=== PATIENT | female | born 1950 | race Caucasian/White ===

== ENCOUNTER 2016-09-08 07:30 | Outpatient (CLI) | payer OTHER, MEDICARE | END 2016-09-08 07:31 | disposition home or self-care (01) | DX: D68.61 Antiphospholipid syndrome (principal) ==

== ENCOUNTER 2016-10-06 07:00 | Outpatient (CLI) | payer OTHER, MEDICARE | END 2016-10-06 07:01 | disposition home or self-care (01) | DX: D68.61 Antiphospholipid syndrome (principal) ==

== ENCOUNTER 2016-11-24 07:04 | Outpatient (CLI) | payer OTHER, MEDICARE | END 2016-11-24 07:05 | disposition home or self-care (01) | DX: D68.61 Antiphospholipid syndrome (principal) ==

== ENCOUNTER 2016-12-30 07:00 | Outpatient (CLI) | payer OTHER, MEDICARE | END 2016-12-30 07:01 | disposition home or self-care (01) | LOC: LAB.F 07:00 | PROVIDERS: ATTEND Internal Medicine Hematology & Oncology | DX: D68.61 Antiphospholipid syndrome (principal) | CPT/HCPCS: 85610 ==

== ENCOUNTER 2017-03-09 07:12 | Outpatient (CLI) | payer OTHER, MEDICARE | END 2017-03-09 07:13 | disposition home or self-care (01) | LOC: LAB.F 07:12 | PROVIDERS: ATTEND Internal Medicine Hematology & Oncology | DX: D68.61 Antiphospholipid syndrome (principal) | CPT/HCPCS: 85610 ==

== ENCOUNTER 2017-04-21 07:03 | Outpatient (CLI) | payer OTHER, MEDICARE | END 2017-04-21 07:04 | disposition home or self-care (01) | LOC: LAB.F 07:03 | PROVIDERS: ATTEND Internal Medicine Hematology & Oncology | DX: D68.61 Antiphospholipid syndrome (principal) | CPT/HCPCS: 85610 ==

== ENCOUNTER 2017-05-18 07:05 | Outpatient (CLI) | payer OTHER, MEDICARE | END 2017-05-18 07:06 | disposition home or self-care (01) | LOC: LAB.F 07:05 | PROVIDERS: ATTEND Internal Medicine Hematology & Oncology | DX: D68.61 Antiphospholipid syndrome (principal) | CPT/HCPCS: 85610 ==

== ENCOUNTER 2017-06-16 07:04 | Outpatient (CLI) | payer OTHER, MEDICARE | END 2017-06-16 07:05 | disposition home or self-care (01) | LOC: LAB.F 07:04 | PROVIDERS: ATTEND Internal Medicine Hematology & Oncology | DX: D68.61 Antiphospholipid syndrome (principal) | CPT/HCPCS: 85610 ==

== ENCOUNTER 2017-08-10 07:08 | Outpatient (CLI) | payer OTHER, MEDICARE | END 2017-08-10 07:09 | disposition home or self-care (01) | LOC: LAB.F 07:08 | PROVIDERS: ATTEND Internal Medicine Hematology & Oncology | DX: D68.61 Antiphospholipid syndrome (principal) | CPT/HCPCS: 85610 ==

== ENCOUNTER 2017-08-31 07:06 | Outpatient (CLI) | payer OTHER, MEDICARE | END 2017-08-31 07:07 | disposition home or self-care (01) | LOC: LAB.F 07:06 | PROVIDERS: ATTEND Internal Medicine Hematology & Oncology | DX: D68.61 Antiphospholipid syndrome (principal) | CPT/HCPCS: 85610 ==

== ENCOUNTER 2017-09-21 07:01 | Outpatient (CLI) | payer OTHER, MEDICARE | END 2017-09-21 07:02 | disposition home or self-care (01) | LOC: LAB.F 07:01 | PROVIDERS: ATTEND Internal Medicine Hematology & Oncology | DX: D68.61 Antiphospholipid syndrome (principal) | CPT/HCPCS: 85610 ==

== ENCOUNTER 2017-10-12 08:00 | Outpatient (CLI) | payer OTHER, MEDICARE | END 2017-10-12 08:01 | LOC: LAB.F 08:00 | PROVIDERS: ATTEND Internal Medicine Hematology & Oncology | DX: D68.61 Antiphospholipid syndrome (principal) | CPT/HCPCS: 85610 ==

== ENCOUNTER 2017-11-16 08:00 | Outpatient (CLI) | payer OTHER, MEDICARE | END 2017-11-16 08:01 | LOC: LAB.F 08:00 | PROVIDERS: ATTEND Internal Medicine | DX: D68.61 Antiphospholipid syndrome (principal) | CPT/HCPCS: 85610 ==

== ENCOUNTER 2017-12-07 07:01 | Outpatient (CLI) | payer OTHER, MEDICARE ==
[2017-12-07 11:12] LABS: PT - PROTHROMBIN TIME 21.9 secs (9.9-12.6)
== END 2017-12-07 07:02 ==
LOC: LAB.F 07:01
PROVIDERS: ATTEND Internal Medicine
DX: D68.61 Antiphospholipid syndrome (principal)
CPT/HCPCS: 85610

== ENCOUNTER 2017-12-25 07:11 | Outpatient (CLI) | payer OTHER, MEDICARE | END 2017-12-25 07:12 | disposition home or self-care (01) | LOC: LAB.F 07:11 | PROVIDERS: ATTEND Internal Medicine | DX: D68.61 Antiphospholipid syndrome (principal) ==

== ENCOUNTER 2017-12-25 08:00 | Outpatient (CLI) | payer OTHER, MEDICARE ==
[2017-12-25 12:24] LABS: INR 1.7 (0.8-1.2); PT - PROTHROMBIN TIME 19.2 secs (9.9-12.6)
== END 2017-12-25 08:01 | disposition home or self-care (01) ==
LOC: LAB.F 08:00
PROVIDERS: ATTEND Internal Medicine
DX: D68.61 Antiphospholipid syndrome (principal); Z51.81 Encounter for therapeutic drug level monitoring; Z79.01 Long term (current) use of anticoagulants
CPT/HCPCS: 36415; 85610

== ENCOUNTER 2017-12-29 07:18 | Outpatient (CLI) | payer OTHER, MEDICARE ==
[2017-12-29 10:35] LABS: INR 2.3 (0.8-1.2); PT - PROTHROMBIN TIME 25.1 secs (9.9-12.6)
== END 2017-12-29 07:19 | disposition home or self-care (01) ==
LOC: LAB.F 07:18
PROVIDERS: ATTEND Internal Medicine
DX: D68.61 Antiphospholipid syndrome (principal); Z79.01 Long term (current) use of anticoagulants
CPT/HCPCS: 36415; 85610

== ENCOUNTER 2018-01-04 07:34 | Outpatient (CLI) | payer OTHER, MEDICARE | END 2018-01-04 07:35 | disposition home or self-care (01) | LOC: LAB.F 07:34 | PROVIDERS: ATTEND Internal Medicine | DX: D68.61 Antiphospholipid syndrome (principal) | CPT/HCPCS: 85610 ==

== ENCOUNTER 2018-02-23 07:05 | Outpatient (CLI) | payer OTHER, MEDICARE | END 2018-02-23 07:06 | disposition home or self-care (01) | LOC: LAB.F 07:05 | PROVIDERS: ATTEND Internal Medicine | DX: D68.61 Antiphospholipid syndrome (principal) | CPT/HCPCS: 85610 ==

== ENCOUNTER 2018-03-23 08:27 | Outpatient (CLI) | payer OTHER, MEDICARE | END 2018-03-23 08:28 | disposition home or self-care (01) | LOC: LAB.F 08:27 | PROVIDERS: ATTEND Internal Medicine | DX: D68.61 Antiphospholipid syndrome (principal) | CPT/HCPCS: 85610 ==

== ENCOUNTER 2018-04-20 07:57 | Outpatient (CLI) | payer OTHER, MEDICARE | END 2018-04-20 07:58 | disposition home or self-care (01) | LOC: LAB.F 07:57 | PROVIDERS: ATTEND Internal Medicine | DX: D68.61 Antiphospholipid syndrome (principal) | CPT/HCPCS: 85610 ==

== ENCOUNTER 2018-05-17 08:19 | Outpatient (CLI) | payer MEDICARE, OTHER | END 2018-05-17 08:20 | disposition home or self-care (01) | LOC: LAB.F 08:19 | PROVIDERS: ATTEND Internal Medicine | DX: D68.61 Antiphospholipid syndrome (principal) | CPT/HCPCS: 85610 ==

== ENCOUNTER 2018-06-15 08:00 | Outpatient (CLI) | payer MEDICARE, OTHER ==
[2018-06-15 10:56] LABS: INR 1.6 (0.8-1.2); PT - PROTHROMBIN TIME 17.4 secs (9.9-12.6)
== END 2018-06-15 08:01 | disposition home or self-care (01) ==
LOC: LAB.F 08:00
PROVIDERS: ATTEND Internal Medicine
DX: D68.61 Antiphospholipid syndrome (principal)
CPT/HCPCS: 36415; 85610

== ENCOUNTER 2018-06-29 07:54 | Outpatient (CLI) | payer MEDICARE, OTHER | END 2018-06-29 07:55 | disposition home or self-care (01) | LOC: LAB.F 07:54 | PROVIDERS: ATTEND Internal Medicine | DX: D68.61 Antiphospholipid syndrome (principal) | CPT/HCPCS: 85610 ==

== ENCOUNTER 2018-07-13 07:38 | Outpatient (CLI) | payer MEDICARE, OTHER | END 2018-07-13 07:39 | disposition home or self-care (01) | LOC: LAB.F 07:38 | PROVIDERS: ATTEND Internal Medicine | DX: D68.61 Antiphospholipid syndrome (principal) | CPT/HCPCS: 85610 ==

== ENCOUNTER 2018-08-10 07:50 | Outpatient (CLI) | payer MEDICARE, OTHER | END 2018-08-10 07:51 | disposition home or self-care (01) | LOC: LAB.F 07:50 | PROVIDERS: ATTEND Internal Medicine | DX: D68.61 Antiphospholipid syndrome (principal) | CPT/HCPCS: 85610 ==

== ENCOUNTER 2018-09-07 10:22 | Outpatient (CLI) | payer MEDICARE, OTHER | END 2018-09-07 10:23 | disposition home or self-care (01) | LOC: LAB.F 10:22 | PROVIDERS: ATTEND Internal Medicine | DX: D68.61 Antiphospholipid syndrome (principal) | CPT/HCPCS: 85610 ==

== ENCOUNTER 2018-09-28 08:00 | Outpatient (CLI) | payer MEDICARE, OTHER | END 2018-09-28 08:01 | disposition home or self-care (01) | LOC: LAB.F 08:00 | PROVIDERS: ATTEND Internal Medicine | DX: D68.61 Antiphospholipid syndrome (principal) | CPT/HCPCS: 85610 ==

== ENCOUNTER 2018-10-26 07:36 | Outpatient (CLI) | payer MEDICARE, OTHER | END 2018-10-26 07:37 | disposition home or self-care (01) | LOC: LAB.F 07:36 | PROVIDERS: ATTEND Internal Medicine | DX: D68.61 Antiphospholipid syndrome (principal) | CPT/HCPCS: 85610 ==

== ENCOUNTER 2018-11-15 15:28 | Emergency (ER) | payer MEDICARE, OTHER ==
[2018-11-15 15:42] VITALS: BP 150/62
--- NOTE | 2018-11-15 16:01 | ED Physician Documentation ---
PD HPI UPPER EXT INJURY - Stated complaint Stated Complaint: R FINGER LAC/ON BLOOD THINNERS - Chief complaint Chief Complaint: Laceration - History obtained from History obtained from: Patient - History of Present Illness Location: Right (68-year-old woman on warfarin cut her right fourth finger on broken glass at home just prior to arrival. 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 Cardiovascular: Coronary stent - Present Medications Home Medications: Ambulatory Orders Medication Instructions Recorded Confirmed Aspirin 325 DAILY 09/04/13 09/04/13 Atenolol 25 DAILY 09/04/13 09/04/13 Cholecalciferol (Vitamin D3) 2,000 09/04/13 09/04/13 [Vitamin D] Fexofenadine HCl [Deb] 180 DAILY 09/04/13 09/04/13 Levothyroxine Sodium [Levoxyl] 75 DAILY 09/04/13 09/04/13 Nifedipine [Nifedical Xl] 30 BID 09/04/13 09/04/13 Subcutaneous Insulin Pump [Insulin 09/04/13 09/04/13 Pump] Warfarin [Coumadin] 1 mg PO 1400 11/15/18 11/15/18 - Allergies Allergies/Adverse Reactions: Allergies Allergy/AdvReac Type Severity Reaction Status Date / Time cefuroxime axetil * Allergy Intermediate Itching Verified 11/15/18 15:43 [From Ceftin] ciprofloxacin [From Cipro] Allergy Intermediate Rash Verified 09/04/13 02:14 ciprofloxacin HCl * Allergy Intermediate Rash Verified 09/04/13 02:14 [From Cipro] codeine Allergy Intermediate Rash Verified 11/15/18 15:43 hydrocodone Allergy Intermediate Itching Verified 11/15/18 15:43 salsalate [Salsalate] Allergy Intermediate Rash Verified 11/15/18 15:43 Penicillins Allergy Mild Rash Verified 11/15/18 15:43 sulindac [Sulindac] Allergy Mild Rash Verified 11/15/18 15:43 acetaphetamine AdvReac Unknown Uncoded 09/04/13 02:25 - Social History Does the pt smoke?: No Smoking Status: Never smoker Does the pt drink ETOH?: Yes Does the pt have substance abuse?: No - Immunizations Immunizations are current?: Yes PD ED PE NORMAL - Vitals Vital signs reviewed: Yes - General General: Alert and oriented X 3, No acute distress - Extremities Extremities: Other (On the Tip of the right fourth finger ulnar side there is a little skin amputation measuring only about 2 mm in diameter with active bleeding.) - Neuro Neuro: Alert and oriented X 3, Normal speech Results - Vitals Vitals: Vital Signs - 24 hr 11/15/18 15:41 Temperature 36.3 C L Heart Rate 64 Respiratory 18 Rate Blood Pressure 150/62 H O2 Saturation 100 Oxygen O2 Source Room air - Labs Labs: Laboratory Tests 11/15/18 16:05 Whole Blood INR 2.2 H Procedures - Laceration (location) Right fourth finger Length in cm: 0.2 Wound type: Superficial Wound Preparation: Irrigated copiously NS Skin layer closure: Dermabond Complexity: Simple Departure - Departure Disposition: 01 Home, Self Care Clinical Impression: Laceration Condition: Good Record reviewed to determine appropriate education?: Yes Instructions: ED Laceration Small Superf No Sutr Comments: You can wash briefly with soap and water. Otherwise keep it dry just covered with a regular Band-Aid. Come back for any signs of infection which would include: Redness, swelling, drainage, increased pain, or fevers. Your blood pressure was elevated today on check into the emergency department. This does not mean that you have hypertension, it is a common phenomenon to come to the emergency department and have elevated blood pressure. I recommend that you see your primary care physician within the week to have it rechecked when you are feeling better. Your INR today is 2.2 which is perfect.
== END 2018-11-15 16:16 | disposition home or self-care (01) ==
LOC: ED 15:28
DX: S61.214A Laceration without foreign body of right ring finger without damage to nail, initial encounter (principal); W25.XXXA Contact with sharp glass, initial encounter; Y93.G1 Activity, food preparation and clean up; Y92.009 Unspecified place in unspecified non-institutional (private) residence as the place of occurrence of the external cause; R03.0 Elevated blood-pressure reading, without diagnosis of hypertension; E10.9 Type 1 diabetes mellitus without complications; Z79.01 Long term (current) use of anticoagulants
CPT/HCPCS: 12001; 85610; 99282; 99283

== ENCOUNTER 2019-01-11 07:47 | Outpatient (CLI) | payer MEDICARE, OTHER | END 2019-01-11 07:48 | disposition home or self-care (01) | LOC: LAB.F 07:47 | PROVIDERS: ATTEND Internal Medicine | DX: D68.61 Antiphospholipid syndrome (principal) | CPT/HCPCS: 85610 ==

== ENCOUNTER 2019-02-15 08:33 | Outpatient (CLI) | payer MEDICARE, OTHER | END 2019-02-15 08:34 | disposition home or self-care (01) | LOC: LAB.S 08:33 | PROVIDERS: ATTEND Internal Medicine | DX: D68.61 Antiphospholipid syndrome (principal) | CPT/HCPCS: 85610 ==

== ENCOUNTER 2019-03-22 07:34 | Outpatient (CLI) | payer MEDICARE, OTHER | END 2019-03-22 07:35 | disposition home or self-care (01) | LOC: LAB.S 07:34 | PROVIDERS: ATTEND Internal Medicine | DX: D68.61 Antiphospholipid syndrome (principal) | CPT/HCPCS: 85610 ==

== ENCOUNTER 2019-05-03 08:10 | Outpatient (CLI) | payer MEDICARE, OTHER | END 2019-05-03 08:11 | disposition home or self-care (01) | LOC: LAB.S 08:10 | PROVIDERS: ATTEND Internal Medicine | DX: D68.61 Antiphospholipid syndrome (principal) | CPT/HCPCS: 85610 ==

== ENCOUNTER 2019-06-07 08:02 | Outpatient (CLI) | payer MEDICARE, OTHER | END 2019-06-07 08:03 | disposition home or self-care (01) | LOC: LAB.S 08:02 | PROVIDERS: ATTEND Internal Medicine | DX: D68.61 Antiphospholipid syndrome (principal) | CPT/HCPCS: 85610 ==

== ENCOUNTER 2019-07-05 07:35 | Outpatient (CLI) | payer MEDICARE, OTHER | END 2019-07-05 07:36 | disposition home or self-care (01) | LOC: LAB.S 07:35 | PROVIDERS: ATTEND Internal Medicine | DX: D68.61 Antiphospholipid syndrome (principal) | CPT/HCPCS: 85610 ==

== ENCOUNTER 2019-08-09 07:52 | Outpatient (CLI) | payer MEDICARE, OTHER | END 2019-08-09 07:53 | disposition home or self-care (01) | LOC: LAB.S 07:52 | PROVIDERS: ATTEND Internal Medicine | DX: D68.61 Antiphospholipid syndrome (principal) | CPT/HCPCS: 85610 ==

== ENCOUNTER 2019-09-20 07:10 | Outpatient (CLI) | payer MEDICARE, OTHER | END 2019-09-20 07:11 | disposition home or self-care (01) | LOC: LAB.S 07:10 | PROVIDERS: ATTEND Internal Medicine | DX: D68.61 Antiphospholipid syndrome (principal) | CPT/HCPCS: 85610 ==

== ENCOUNTER 2019-10-25 07:38 | Outpatient (CLI) | payer MEDICARE, OTHER | END 2019-10-25 07:39 | disposition home or self-care (01) | LOC: LAB.S 07:38 | PROVIDERS: ATTEND Internal Medicine | DX: D68.61 Antiphospholipid syndrome (principal) | CPT/HCPCS: 85610 ==

== ENCOUNTER 2020-04-10 07:31 | Outpatient (CLI) | payer MEDICARE, OTHER | END 2020-04-10 07:32 | disposition home or self-care (01) | LOC: LAB.S 07:31 | PROVIDERS: ATTEND Internal Medicine | DX: D68.61 Antiphospholipid syndrome (principal) | CPT/HCPCS: 85610 ==

== ENCOUNTER 2020-05-22 07:52 | Outpatient (CLI) | payer MEDICARE, OTHER | END 2020-05-22 07:53 | disposition home or self-care (01) | LOC: LAB.S 07:52 | PROVIDERS: ATTEND Internal Medicine | DX: D68.61 Antiphospholipid syndrome (principal) | CPT/HCPCS: 85610 ==

== ENCOUNTER 2020-07-03 07:32 | Outpatient (CLI) | payer MEDICARE, OTHER | END 2020-07-03 07:33 | disposition home or self-care (01) | LOC: LAB.S 07:32 | PROVIDERS: ATTEND Internal Medicine | DX: D68.61 Antiphospholipid syndrome (principal) | CPT/HCPCS: 85610 ==

== ENCOUNTER 2020-07-13 07:51 | Outpatient (CLI) | payer MEDICARE, OTHER | END 2020-07-13 07:52 | disposition home or self-care (01) | LOC: LAB.S 07:51 | PROVIDERS: ATTEND Internal Medicine | DX: D68.61 Antiphospholipid syndrome (principal) | CPT/HCPCS: 85610 ==

== ENCOUNTER 2020-07-20 07:29 | Outpatient (CLI) | payer MEDICARE, OTHER | END 2020-07-20 07:30 | disposition home or self-care (01) | LOC: LAB.S 07:29 | PROVIDERS: ATTEND Internal Medicine | DX: D68.61 Antiphospholipid syndrome (principal) | CPT/HCPCS: 85610 ==

== ENCOUNTER 2020-08-14 07:44 | Outpatient (CLI) | payer MEDICARE, OTHER | END 2020-08-14 07:45 | disposition home or self-care (01) | LOC: LAB.S 07:44 | PROVIDERS: ATTEND Internal Medicine | DX: D68.61 Antiphospholipid syndrome (principal) | CPT/HCPCS: 85610 ==

== ENCOUNTER 2020-08-28 09:37 | Outpatient (CLI) | payer MEDICARE, OTHER | END 2020-08-28 09:38 | disposition home or self-care (01) | LOC: LAB.S 09:37 | PROVIDERS: ATTEND Internal Medicine | DX: D68.61 Antiphospholipid syndrome (principal) | CPT/HCPCS: 85610 ==

== ENCOUNTER 2020-09-18 07:57 | Outpatient (CLI) | payer MEDICARE, OTHER | END 2020-09-18 07:58 | disposition home or self-care (01) | LOC: LAB.S 07:57 | PROVIDERS: ATTEND Internal Medicine | DX: D68.61 Antiphospholipid syndrome (principal) | CPT/HCPCS: 85610 ==

== ENCOUNTER 2020-10-16 08:18 | Outpatient (CLI) | payer MEDICARE, OTHER | END 2020-10-16 08:19 | disposition home or self-care (01) | LOC: LAB.S 08:18 | PROVIDERS: ATTEND Internal Medicine | DX: D68.61 Antiphospholipid syndrome (principal); Z51.81 Encounter for therapeutic drug level monitoring; Z79.01 Long term (current) use of anticoagulants | CPT/HCPCS: 85610 ==

== ENCOUNTER 2020-11-13 07:15 | Outpatient (CLI) | payer MEDICARE, OTHER | END 2020-11-13 07:16 | disposition home or self-care (01) | LOC: LAB.S 07:15 | PROVIDERS: ATTEND Internal Medicine | DX: D68.61 Antiphospholipid syndrome (principal); Z51.81 Encounter for therapeutic drug level monitoring; Z79.01 Long term (current) use of anticoagulants | CPT/HCPCS: 85610 ==

== ENCOUNTER 2020-12-04 07:45 | Outpatient (CLI) | payer MEDICARE, OTHER | END 2020-12-04 07:46 | disposition home or self-care (01) | LOC: LAB.S 07:45 | PROVIDERS: ATTEND Internal Medicine | DX: D68.61 Antiphospholipid syndrome (principal); Z51.81 Encounter for therapeutic drug level monitoring; Z79.01 Long term (current) use of anticoagulants | CPT/HCPCS: 36416; 85610 ==

== ENCOUNTER 2021-01-02 07:57 | Outpatient (CLI) | payer MEDICARE, OTHER | END 2021-01-02 07:58 | disposition home or self-care (01) | LOC: LAB.S 07:57 | PROVIDERS: ATTEND Internal Medicine | DX: D68.61 Antiphospholipid syndrome (principal); Z51.81 Encounter for therapeutic drug level monitoring; Z79.01 Long term (current) use of anticoagulants | CPT/HCPCS: 36416; 85610 ==

== ENCOUNTER 2021-01-30 08:17 | Outpatient (CLI) | payer MEDICARE, OTHER | END 2021-01-30 08:18 | disposition home or self-care (01) | LOC: LAB.S 08:17 | PROVIDERS: ATTEND Internal Medicine | DX: D68.61 Antiphospholipid syndrome (principal); Z51.81 Encounter for therapeutic drug level monitoring; Z79.01 Long term (current) use of anticoagulants | CPT/HCPCS: 36416; 85610 ==

== ENCOUNTER 2021-02-27 08:05 | Outpatient (CLI) | payer MEDICARE, OTHER | END 2021-02-27 08:06 | disposition home or self-care (01) | LOC: LAB.S 08:05 | PROVIDERS: ATTEND Internal Medicine | DX: D68.61 Antiphospholipid syndrome (principal); Z51.81 Encounter for therapeutic drug level monitoring; Z79.01 Long term (current) use of anticoagulants | CPT/HCPCS: 36416; 85610 ==

== ENCOUNTER 2021-03-20 07:54 | Outpatient (CLI) | payer MEDICARE, OTHER | END 2021-03-20 07:55 | disposition home or self-care (01) | LOC: LAB.S 07:54 | PROVIDERS: ATTEND Internal Medicine | DX: D68.61 Antiphospholipid syndrome (principal); Z51.81 Encounter for therapeutic drug level monitoring; Z79.01 Long term (current) use of anticoagulants | CPT/HCPCS: 36416; 85610 ==

== ENCOUNTER 2021-04-17 07:57 | Outpatient (CLI) | payer MEDICARE, OTHER | END 2021-04-17 07:58 | disposition home or self-care (01) | LOC: LAB.S 07:57 | PROVIDERS: ATTEND Internal Medicine | DX: D68.61 Antiphospholipid syndrome (principal); Z51.81 Encounter for therapeutic drug level monitoring; Z79.01 Long term (current) use of anticoagulants | CPT/HCPCS: 36416; 85610 ==

== ENCOUNTER 2021-05-15 08:12 | Outpatient (CLI) | payer MEDICARE, OTHER | END 2021-05-15 08:13 | disposition home or self-care (01) | LOC: LAB.S 08:12 | PROVIDERS: ATTEND Internal Medicine | DX: D68.61 Antiphospholipid syndrome (principal); Z51.81 Encounter for therapeutic drug level monitoring; Z79.01 Long term (current) use of anticoagulants | CPT/HCPCS: 36416; 85610 ==

== ENCOUNTER 2021-06-12 07:53 | Outpatient (CLI) | payer MEDICARE, OTHER | END 2021-06-12 07:54 | disposition home or self-care (01) | LOC: LAB.S 07:53 | PROVIDERS: ATTEND Internal Medicine | DX: D68.61 Antiphospholipid syndrome (principal); Z51.81 Encounter for therapeutic drug level monitoring; Z79.01 Long term (current) use of anticoagulants | CPT/HCPCS: 36416; 85610 ==

== ENCOUNTER 2021-07-22 07:57 | Outpatient (CLI) | payer MEDICARE, OTHER | END 2021-07-22 07:58 | disposition home or self-care (01) | LOC: LAB.S 07:57 | PROVIDERS: ATTEND Internal Medicine | DX: D68.61 Antiphospholipid syndrome (principal); Z51.81 Encounter for therapeutic drug level monitoring; Z79.01 Long term (current) use of anticoagulants | CPT/HCPCS: 36416; 85610 ==

== ENCOUNTER 2021-08-21 07:48 | Outpatient (CLI) | payer MEDICARE, OTHER | END 2021-08-21 07:49 | disposition home or self-care (01) | LOC: LAB.S 07:48 | PROVIDERS: ATTEND Internal Medicine | DX: D68.61 Antiphospholipid syndrome (principal); Z51.81 Encounter for therapeutic drug level monitoring; Z79.01 Long term (current) use of anticoagulants | CPT/HCPCS: 36416; 85610 ==

== ENCOUNTER 2021-09-18 07:44 | Outpatient (CLI) | payer MEDICARE, OTHER | END 2021-09-18 07:45 | disposition home or self-care (01) | LOC: LAB.S 07:44 | PROVIDERS: ATTEND Internal Medicine | DX: D68.61 Antiphospholipid syndrome (principal); Z51.81 Encounter for therapeutic drug level monitoring; Z79.01 Long term (current) use of anticoagulants | CPT/HCPCS: 36416; 85610 ==

== ENCOUNTER 2021-10-16 07:53 | Outpatient (CLI) | payer MEDICARE, OTHER | END 2021-10-16 07:54 | disposition home or self-care (01) | LOC: LAB.S 07:53 | PROVIDERS: ATTEND Internal Medicine | DX: D68.61 Antiphospholipid syndrome (principal); Z51.81 Encounter for therapeutic drug level monitoring; Z79.01 Long term (current) use of anticoagulants | CPT/HCPCS: 36416; 85610 ==

== ENCOUNTER 2021-10-28 07:50 | Outpatient (CLI) | payer MEDICARE, OTHER | END 2021-10-28 07:51 | disposition home or self-care (01) | LOC: LAB.S 07:50 | PROVIDERS: ATTEND Internal Medicine | DX: D68.61 Antiphospholipid syndrome (principal); Z51.81 Encounter for therapeutic drug level monitoring; Z79.01 Long term (current) use of anticoagulants | CPT/HCPCS: 36416; 85610 ==

== ENCOUNTER 2021-11-25 07:57 | Outpatient (CLI) | payer MEDICARE, OTHER | END 2021-11-25 07:58 | disposition home or self-care (01) | LOC: LAB.S 07:57 | PROVIDERS: ATTEND Internal Medicine | DX: D68.61 Antiphospholipid syndrome (principal); Z51.81 Encounter for therapeutic drug level monitoring; Z79.01 Long term (current) use of anticoagulants | CPT/HCPCS: 36416; 85610 ==

== ENCOUNTER 2021-12-23 08:02 | Outpatient (CLI) | payer MEDICARE, OTHER | END 2021-12-23 08:03 | disposition home or self-care (01) | LOC: LAB.S 08:02 | PROVIDERS: ATTEND Internal Medicine | DX: D68.61 Antiphospholipid syndrome (principal); Z51.81 Encounter for therapeutic drug level monitoring; Z79.01 Long term (current) use of anticoagulants | CPT/HCPCS: 36416; 85610 ==

== ENCOUNTER 2022-01-20 08:02 | Outpatient (CLI) | payer MEDICARE, OTHER | END 2022-01-20 08:03 | disposition home or self-care (01) | LOC: LAB.S 08:02 | PROVIDERS: ATTEND Internal Medicine | DX: D68.61 Antiphospholipid syndrome (principal); Z51.81 Encounter for therapeutic drug level monitoring; Z79.01 Long term (current) use of anticoagulants | CPT/HCPCS: 36416; 85610 ==

== ENCOUNTER 2022-02-04 07:36 | Outpatient (CLI) | payer MEDICARE, OTHER | END 2022-02-04 07:37 | disposition home or self-care (01) | LOC: LAB.S 07:36 | PROVIDERS: ATTEND Internal Medicine | DX: D68.61 Antiphospholipid syndrome (principal); Z51.81 Encounter for therapeutic drug level monitoring; Z79.01 Long term (current) use of anticoagulants | CPT/HCPCS: 36416; 85610 ==

== ENCOUNTER 2022-02-21 07:42 | Outpatient (CLI) | payer MEDICARE, OTHER | END 2022-02-21 07:43 | disposition home or self-care (01) | LOC: LAB.S 07:42 | PROVIDERS: ATTEND Internal Medicine | DX: D68.61 Antiphospholipid syndrome (principal); Z51.81 Encounter for therapeutic drug level monitoring; Z79.01 Long term (current) use of anticoagulants | CPT/HCPCS: 36416; 85610 ==

== ENCOUNTER 2022-02-24 07:44 | Outpatient (CLI) | payer MEDICARE, OTHER | END 2022-02-24 07:45 | disposition home or self-care (01) | LOC: LAB.S 07:44 | PROVIDERS: ATTEND Internal Medicine | DX: D68.61 Antiphospholipid syndrome (principal); Z51.81 Encounter for therapeutic drug level monitoring; Z79.01 Long term (current) use of anticoagulants | CPT/HCPCS: 36416; 85610 ==

== ENCOUNTER 2022-02-26 07:33 | Outpatient (CLI) | payer MEDICARE, OTHER | END 2022-02-26 07:34 | disposition home or self-care (01) | LOC: LAB.S 07:33 | PROVIDERS: ATTEND Internal Medicine | DX: D68.61 Antiphospholipid syndrome (principal); Z51.81 Encounter for therapeutic drug level monitoring; Z79.01 Long term (current) use of anticoagulants | CPT/HCPCS: 36416; 85610 ==

== ENCOUNTER 2022-03-03 07:24 | Outpatient (CLI) | payer MEDICARE, OTHER | END 2022-03-03 07:25 | disposition home or self-care (01) | LOC: LAB.S 07:24 | PROVIDERS: ATTEND Internal Medicine | DX: D68.61 Antiphospholipid syndrome (principal); Z51.81 Encounter for therapeutic drug level monitoring; Z79.01 Long term (current) use of anticoagulants | CPT/HCPCS: 36416; 85610 ==

== ENCOUNTER 2022-03-31 07:25 | Outpatient (CLI) | payer MEDICARE, OTHER | END 2022-03-31 07:26 | disposition home or self-care (01) | LOC: LAB.S 07:25 | PROVIDERS: ATTEND Internal Medicine | DX: D68.61 Antiphospholipid syndrome (principal); Z51.81 Encounter for therapeutic drug level monitoring; Z79.01 Long term (current) use of anticoagulants | CPT/HCPCS: 36416; 85610 ==

== ENCOUNTER 2022-04-14 07:17 | Outpatient (CLI) | payer MEDICARE, OTHER | END 2022-04-14 07:18 | disposition home or self-care (01) | LOC: LAB.S 07:17 | PROVIDERS: ATTEND Internal Medicine | DX: D68.61 Antiphospholipid syndrome (principal); Z51.81 Encounter for therapeutic drug level monitoring; Z79.01 Long term (current) use of anticoagulants | CPT/HCPCS: 36416; 85610 ==

== ENCOUNTER 2022-05-05 07:27 | Outpatient (CLI) | payer MEDICARE, OTHER | END 2022-05-05 07:28 | disposition home or self-care (01) | LOC: LAB.S 07:27 | PROVIDERS: ATTEND Internal Medicine | DX: D68.61 Antiphospholipid syndrome (principal); Z51.81 Encounter for therapeutic drug level monitoring; Z79.01 Long term (current) use of anticoagulants | CPT/HCPCS: 36416; 85610 ==

== ENCOUNTER 2022-08-11 10:50 | Outpatient (CLI) | payer MEDICARE, OTHER | END 2022-08-11 10:51 | disposition home or self-care (01) | LOC: LAB 10:50 | PROVIDERS: ATTEND Internal Medicine | DX: D68.61 Antiphospholipid syndrome (principal); Z51.81 Encounter for therapeutic drug level monitoring; Z79.01 Long term (current) use of anticoagulants | CPT/HCPCS: 36416; 85610 ==

== ENCOUNTER 2022-09-03 08:12 | Outpatient (CLI) | payer MEDICARE, OTHER ==
[2022-09-03 20:36] LABS: ESTIMATED AVERAGE GLUCOSE 166 mg/dL (70-100); HEMOGLOBIN A1c% 7.4 % (4.27-6.07)
== END 2022-09-03 08:13 | disposition home or self-care (01) ==
LOC: LAB.S 08:12
PROVIDERS: ATTEND Nurse Practitioner Family
DX: E10.8 Type 1 diabetes mellitus with unspecified complications (principal); Z96.41 Presence of insulin pump (external) (internal)
CPT/HCPCS: 36415; 83036

== ENCOUNTER 2022-09-08 07:38 | Outpatient (CLI) | payer MEDICARE, OTHER | END 2022-09-08 07:39 | disposition home or self-care (01) | LOC: LAB.S 07:38 | PROVIDERS: ATTEND Internal Medicine | DX: D68.61 Antiphospholipid syndrome (principal); Z51.81 Encounter for therapeutic drug level monitoring; Z79.01 Long term (current) use of anticoagulants | CPT/HCPCS: 36416; 85610 ==

== ENCOUNTER 2022-09-30 07:13 | Outpatient (CLI) | payer MEDICARE, OTHER | END 2022-09-30 07:14 | disposition home or self-care (01) | LOC: LAB.S 07:13 | PROVIDERS: ATTEND Internal Medicine | DX: D68.61 Antiphospholipid syndrome (principal); Z51.81 Encounter for therapeutic drug level monitoring; Z79.01 Long term (current) use of anticoagulants | CPT/HCPCS: 36416; 85610 ==

== ENCOUNTER 2022-10-08 08:00 | Outpatient (CLI) | payer MEDICARE, OTHER | END 2022-10-08 08:01 | disposition home or self-care (01) | LOC: LAB.S 08:00 | PROVIDERS: ATTEND Internal Medicine | DX: D68.61 Antiphospholipid syndrome (principal); Z51.81 Encounter for therapeutic drug level monitoring; Z79.01 Long term (current) use of anticoagulants | CPT/HCPCS: 36416; 85610 ==

== ENCOUNTER 2022-11-10 07:46 | Outpatient (CLI) | payer MEDICARE, OTHER | END 2022-11-10 07:47 | disposition home or self-care (01) | LOC: LAB.S 07:46 | PROVIDERS: ATTEND Internal Medicine | DX: D68.61 Antiphospholipid syndrome (principal); Z51.81 Encounter for therapeutic drug level monitoring; Z79.01 Long term (current) use of anticoagulants | CPT/HCPCS: 36416; 85610 ==

== ENCOUNTER 2022-11-25 09:17 | Outpatient (CLI) | payer MEDICARE, OTHER ==
[2022-11-25 09:35] LABS: BASOPHILS % (AUTO) 0.2 %; EOSINOPHILS % (AUTO) 0.8 %; HCT - HEMATOCRIT 37.2 % (37.0-47.0); HGB - HEMOGLOBIN 12.6 g/dL (12.0-16.0); LYMPHOCYTES % (AUTO) 20.6 %; MEAN CORPUSCULAR HEMOGLOBIN 32.9 pg (27.0-31.0); MEAN CORPUSCULAR HGB CONC 33.9 g/dL (32.0-36.0); MEAN CORPUSCULAR VOLUME 97.1 fL (81.0-99.0); MEAN PLATELET VOLUME 10.8 fL (7.9-10.8); MONOCYTES # (AUTO) 0.7 10^3/uL (0.0-1.0); MONOCYTES % (AUTO) 13.9 %; NEUTROPHILS # (AUTO) 3.2 10^3/uL (1.5-6.6); NEUTROPHILS % (AUTO) 64.3 %; PLT - PLATELET COUNT 251 10^3/uL (130-450); RED BLOOD COUNT 3.83 10^6/uL (4.20-5.40); RED CELL DISTRIBUTION WIDTH 13.5 % (12.0-15.0)
[2022-11-25 09:45] LABS: BILIRUBIN,URINE NEGATIVE (NEGATIVE); GLUCOSE, URINE (UA) NEGATIVE (NEGATIVE); KETONES,URINE (UA) NEGATIVE (NEGATIVE); LEUKOCYTE ESTERASE, URINE NEGATIVE (NEGATIVE); NITRITE,URINE NEGATIVE (NEGATIVE); OCCULT BLOOD,URINE NEGATIVE (NEGATIVE); PROTEIN,URINE NEGATIVE (NEGATIVE); UROBILINOGEN,URINE 0.2 (NORMAL) E.U./dL (NORMAL)
[2022-11-25 09:48] LABS: CLARITY,URINE CLEAR (CLEAR)
[2022-11-25 09:54] LABS: ALBUMIN 4.1 g/dL (3.2-5.5); ALBUMIN/GLOBULIN RATIO 1.3 (1.0-2.2); ALKALINE PHOSPHATASE 72 IU/L (42-121); ALT ALANINE AMINOTRANSFERASE 24 IU/L (10-60); AST ASPARTATE AMINOTRANSFERASE 30 IU/L (10-42); BILIRUBIN,TOTAL 0.8 mg/dL (0.2-1.0); BUN - BLOOD UREA NITROGEN 23 mg/dL (6-20); CARBON DIOXIDE - CO2 27 mmol/L (21-32); CHLORIDE 100 mmol/L (101-111); CREATININE 0.6 mg/dL (0.4-1.0); GFR - MDRD 98 (>89); GLUCOSE 219 mg/dL (70-100); POTASSIUM 4.4 mmol/L (3.5-5.0); SODIUM 138 mmol/L (135-145); TOTAL PROTEIN 7.2 g/dL (6.7-8.2)
[2022-11-25 09:59] LABS: BACTERIA,URINE Few /HPF (None Seen); RBC,URINE 0-5 /HPF (0-5); SQUAMOUS EPITHELIAL CELL,UR RARE Squamous (<= Few); WBC,URINE 0-3 /HPF (0-5)
[2022-11-25 10:00] LABS: CRP - C-REACTIVE PROTEIN < 1.0 mg/dL (0-1.0)
[2022-11-25 12:02] LABS: ESTIMATED AVERAGE GLUCOSE 171 mg/dL (70-100); HEMOGLOBIN A1c% 7.6 % (4.27-6.07)
== END 2022-11-25 09:18 | disposition home or self-care (01) ==
LOC: LAB 09:17
PROVIDERS: ATTEND Nurse Practitioner Family
DX: E10.9 Type 1 diabetes mellitus without complications (principal); Z79.899 Other long term (current) drug therapy; M35.9 Systemic involvement of connective tissue, unspecified; D68.61 Antiphospholipid syndrome
CPT/HCPCS: 36415; 80053; 81001; 83036; 85025; 85651; 86140; 87086

== ENCOUNTER 2022-12-08 07:51 | Outpatient (CLI) | payer MEDICARE, OTHER | END 2022-12-08 07:52 | disposition home or self-care (01) | LOC: LAB.S 07:51 | PROVIDERS: ATTEND Internal Medicine | DX: D68.61 Antiphospholipid syndrome (principal); Z51.81 Encounter for therapeutic drug level monitoring; Z79.01 Long term (current) use of anticoagulants | CPT/HCPCS: 36416; 85610 ==

== ENCOUNTER 2022-12-22 07:57 | Outpatient (CLI) | payer MEDICARE, OTHER | END 2022-12-22 07:58 | disposition home or self-care (01) | LOC: LAB.S 07:57 | PROVIDERS: ATTEND Internal Medicine | DX: D68.61 Antiphospholipid syndrome (principal); Z51.81 Encounter for therapeutic drug level monitoring; Z79.01 Long term (current) use of anticoagulants | CPT/HCPCS: 36416; 85610 ==

== ENCOUNTER 2023-01-05 07:50 | Outpatient (CLI) | payer MEDICARE, OTHER | END 2023-01-05 07:51 | disposition home or self-care (01) | LOC: LAB.S 07:50 | PROVIDERS: ATTEND Internal Medicine | DX: D68.61 Antiphospholipid syndrome (principal); Z51.81 Encounter for therapeutic drug level monitoring; Z79.01 Long term (current) use of anticoagulants | CPT/HCPCS: 36416; 85610 ==

== ENCOUNTER 2023-01-12 08:06 | Outpatient (CLI) | payer MEDICARE, OTHER | END 2023-01-12 08:07 | disposition home or self-care (01) | LOC: LAB.S 08:06 | PROVIDERS: ATTEND Internal Medicine | DX: D68.61 Antiphospholipid syndrome (principal); Z51.81 Encounter for therapeutic drug level monitoring; Z79.01 Long term (current) use of anticoagulants | CPT/HCPCS: 36416; 85610 ==

== ENCOUNTER 2023-01-26 07:52 | Outpatient (CLI) | payer MEDICARE, OTHER | END 2023-01-26 07:53 | disposition home or self-care (01) | LOC: LAB.S 07:52 | PROVIDERS: ATTEND Internal Medicine | DX: D68.61 Antiphospholipid syndrome (principal); Z51.81 Encounter for therapeutic drug level monitoring; Z79.01 Long term (current) use of anticoagulants | CPT/HCPCS: 36416; 85610 ==

== ENCOUNTER 2023-02-09 07:44 | Outpatient (CLI) | payer MEDICARE, OTHER | END 2023-02-09 07:45 | disposition home or self-care (01) | LOC: LAB.S 07:44 | PROVIDERS: ATTEND Internal Medicine | DX: D68.61 Antiphospholipid syndrome (principal); Z51.81 Encounter for therapeutic drug level monitoring; Z79.01 Long term (current) use of anticoagulants | CPT/HCPCS: 36416; 85610 ==

== ENCOUNTER 2023-02-23 08:05 | Outpatient (CLI) | payer MEDICARE, OTHER ==
[2023-02-23 18:34] LABS: ESTIMATED AVERAGE GLUCOSE 169 mg/dL (70-100); HEMOGLOBIN A1c% 7.5 % (4.27-6.07)
== END 2023-02-23 08:06 | disposition home or self-care (01) ==
LOC: LAB.S 08:05
PROVIDERS: ATTEND Internal Medicine
DX: D68.61 Antiphospholipid syndrome (principal); Z51.81 Encounter for therapeutic drug level monitoring; Z79.01 Long term (current) use of anticoagulants; E10.9 Type 1 diabetes mellitus without complications
CPT/HCPCS: 36415; 82985; 83036; 85610

== ENCOUNTER 2023-03-09 08:07 | Outpatient (CLI) | payer MEDICARE, OTHER | END 2023-03-09 08:08 | disposition home or self-care (01) | LOC: LAB.S 08:07 | PROVIDERS: ATTEND Internal Medicine | DX: D68.61 Antiphospholipid syndrome (principal); Z51.81 Encounter for therapeutic drug level monitoring; Z79.01 Long term (current) use of anticoagulants | CPT/HCPCS: 36416; 85610 ==

== ENCOUNTER 2023-04-13 07:58 | Outpatient (CLI) | payer MEDICARE, OTHER | END 2023-04-13 07:59 | disposition home or self-care (01) | LOC: LAB.S 07:58 | PROVIDERS: ATTEND Internal Medicine | DX: D68.61 Antiphospholipid syndrome (principal); Z51.81 Encounter for therapeutic drug level monitoring; Z79.01 Long term (current) use of anticoagulants | CPT/HCPCS: 36416; 85610 ==

== ENCOUNTER 2023-05-25 07:22 | Outpatient (CLI) | payer MEDICARE, OTHER | END 2023-05-25 07:23 | disposition home or self-care (01) | LOC: LAB.S 07:22 | PROVIDERS: ATTEND Internal Medicine | DX: D68.61 Antiphospholipid syndrome (principal); Z51.81 Encounter for therapeutic drug level monitoring; Z79.01 Long term (current) use of anticoagulants | CPT/HCPCS: 36416; 85610 ==

== ENCOUNTER 2023-05-30 17:31 | Emergency (ER) | payer MEDICARE, OTHER ==
[2023-05-30 18:00] VITALS: O2SAT 99
--- NOTE | 2023-05-30 18:09 | ED Physician Documentation ---
History of Present Illness - Stated complaint Stated Complaint: - Chief complaint Chief Complaint: General - History obtained from History obtained from: Patient - Additonal information Additional information: 73-year-old woman on warfarin for antiphospholipid antibody syndrome presents with gross hematuria, dark in color with 2 small very small clots starting at 4 PM today with some pelvic cramping. She has no history of bleeding or bladder or kidney problems. She is on warfarin for antiphospholipid antibody syndrome with last INR 6 days ago of 2.7. She was noted on examination to be in likely atrial fibrillation. She states that she has had a rapid heartbeat with some shortness of breath no chest pain for the last 2 to 3 weeks. PD PAST MEDICAL HISTORY - Past Medical History Cardiovascular: Angina, Other Endocrine/Autoimmune: Type 1 diabetes, HyPOthyroidism - Past Surgical History Past Surgical History: Yes General: Appendectomy /WOUND TREATMENT RN: Tubal ligation Cardiovascular: Coronary stent - Present Medications Home Medications: Ambulatory Orders Medication Instructions Recorded Confirmed Aspirin 325 DAILY 09/04/13 09/04/13 Cholecalciferol (Vitamin D3) 2,000 09/04/13 09/04/13 [Vitamin D] Fexofenadine HCl [Deb] 180 mg PO DAILY 09/04/13 05/30/23 Levothyroxine Sodium [Levoxyl] 75 mcg PO DAILY 09/04/13 05/30/23 Nifedipine [Nifedical Xl] 30 mg PO BID 09/04/13 05/30/23 Subcutaneous Insulin Pump [Insulin 1 each SUBQ DAILY 09/04/13 05/30/23 Pump] atenoloL [Atenolol] 25 mg PO DAILY 09/04/13 05/30/23 Warfarin [Coumadin] 1 mg PO 1400 11/15/18 11/15/18 Famotidine [Acid Rehabilitation Engineer] 40 mg PO BID 05/30/23 05/30/23 Hydroxychloroquine [Plaquenil] 200 mg PO DAILY 05/30/23 05/30/23 Nitrofurantoin [Macrobid] 1 cap PO BID #10 cap 05/30/23 - Allergies Allergies/Adverse Reactions: Allergies Allergy/AdvReac Type Severity Reaction Status Date / Time cefuroxime axetil * Allergy Intermediate Itching Verified 02/14/22 00:53 [From Ceftin] ciprofloxacin [From Cipro] Allergy Intermediate Rash Verified 02/14/22 00:53 ciprofloxacin HCl * Allergy Intermediate Rash Verified 02/14/22 00:53 [From Cipro] codeine Allergy Intermediate Rash Verified 02/14/22 00:53 hydrocodone Allergy Intermediate Itching Verified 02/14/22 00:53 salsalate [Salsalate] Allergy Intermediate Rash Verified 02/14/22 00:53 Penicillins Allergy Mild Rash Verified 02/14/22 00:53 sulindac [Sulindac] Allergy Mild Rash Verified 02/14/22 00:53 acetaphetamine AdvReac Unknown Uncoded 02/14/22 00:53 - Social History Does the pt smoke?: No Smoking Status: Never smoker Does the pt drink ETOH?: Yes Does the pt have substance abuse?: No - Immunizations Immunizations are current?: Yes PD ED PE NORMAL - Vitals Vital signs reviewed: Yes - General General: Alert and oriented X 3, No acute distress - Cardiac Cardiac: Other (Rapid and irregular without murmur) - Respiratory Respiratory: No respiratory distress, Clear bilaterally - Abdomen Abdomen: Soft, Non tender - Neuro Neuro: Alert and oriented X 3, Normal speech Results - Vitals Vitals: Vital Signs - 24 hr 05/30/23 05/30/23 17:56 18:49 Temperature 36.2 C L Heart Rate 94 124 H Respiratory 18 23 Rate Blood Pressure 139/86 H 138/103 H O2 Saturation 99 99 Oxygen O2 Source Room air - EKG (time done) 1809 EKG releavant findings:: EKG personally interpreted by author of this note. Relevant findings are: Rate: Rate (enter#) (118) Rhythm: Atrial fibrillation (w pvc) [place]: RAD Intervals: Normal MN, Prolonged QT QRS: Normal Ischemia: Normal ST segments - Labs Labs: Laboratory Tests 05/30/23 05/30/23 05/30/23 17:54 18:21 18:21 WBC 5.0 RBC 4.01 L Hgb 12.8 Hct 37.7 MCV 94.0 MCH 31.9 H MCHC 34.0 RDW 15.2 H Plt Count 224 MPV 10.7 Neut # (Auto) 3.1 Lymph # (Auto) 1.0 L [place] # (Auto) 0.8 Eos # (Auto) 0.1 Baso # (Auto) 0.0 Absolute Nucleated RBC 0.00 Nucleated RBC % 0.0 PT 33.7 H INR 3.3 H Sodium Potassium Chloride Carbon Dioxide Anion Gap BUN Creatinine Estimated GFR (MDRD) Glucose Calcium Urine Color RED/BLOODY Urine Clarity TURBID Urine pH 6.5 Ur Specific [place] 1.020 Urine Protein >=300 H Urine Glucose (UA) NEGATIVE Urine Ketones NEGATIVE Urine Occult Blood LARGE H Urine Nitrite NEGATIVE Urine Bilirubin NEGATIVE Urine Urobilinogen 0.2 (NORMAL) Ur Leukocyte Esterase SMALL H Urine RBC TNTC H Urine WBC >25 H Ur Squamous Epith Cells RARE Squamous Urine Bacteria Rare Ur Microscopic Review INDICATED Urine Culture Comments INDICATED 05/30/23 18:21 WBC RBC Hgb Hct MCV MCH MCHC RDW Plt Count MPV Neut # (Auto) Lymph # (Auto) [place] # (Auto) Eos # (Auto) Baso # (Auto) Absolute Nucleated RBC Nucleated RBC % PT INR Sodium 136 Potassium 3.9 Chloride 101 Carbon Dioxide 27 Anion Gap 8.0 BUN 23 H Creatinine 0.6 Estimated GFR (MDRD) 98 Glucose 118 H Calcium 9.6 Urine Color Urine Clarity Urine pH Ur Specific [place] Urine Protein Urine Glucose (UA) Urine Ketones Urine Occult Blood Urine Nitrite Urine Bilirubin Urine Urobilinogen Ur Leukocyte Esterase Urine RBC Urine WBC Ur Squamous Epith Cells Urine Bacteria Ur Microscopic Review Urine Culture Comments PD Medical Decision Making - ED course ED course: 73-year-old woman with gross hematuria today. She is anticoagulated with warfarin and found to have an INR slightly supratherapeutic at 3.3. Her CBC and BMP are unremarkable. Urinalysis showing a lot of blood but also a lot of white cells and some bacteria. As such we will treat for UTI but given both close return precautions as well as mandated instructions to have repeat urinalysis done if hematuria is persistent to consider urology consultation for work-up of that. Treated with Macrobid here and advised to increase leafy green vegetables tonight and skip her warfarin with only half dose of warfarin tomorrow and a recheck of her INR on Thursday. Departure - Departure Disposition: 01 Home, Self Care Clinical Impression: Supratherapeutic INR, Cystitis Hematuria Qualifiers: Hematuria type: gross Qualified Code(s): R31.0 - Gross hematuria Atrial fibrillation Qualifiers: Atrial fibrillation type: unspecified Qualified Code(s): I48.91 - Unspecified atrial fibrillation Condition: Good Record reviewed to determine appropriate education?: Yes Instructions: Atrial Fibrillation Dc, ED UTI Cystitis Female Prescriptions: Nitrofurantoin [Macrobid] 1 cap PO BID #10 cap Comments: You are found today to have evidence of urinary tract infection with not only blood but white cells in your urine. We will perform a urine culture and call you if the results would necessitate a change in antibiotics. Otherwise we noted that your blood counts are normal and your INR is slightly high at 3.3. Recommend you skip your warfarin tonight and take 5 mg tomorrow night. Then go to the clinic on Thursday to have it checked again. Given that it is high and you are having bleeding I would like it in the low 2 range. If you are still bleeding on Thursday please return for reevaluation, even if it has improved, you should follow-up with your physician as scheduled and I would recommend considering a repeat urinalysis to make sure the blood has cleared with urology consultation for consideration of cystoscopy if it has not. Also tonight we found you to have atrial fibrillation. Assume it is not very acute and you are already on warfarin. The rate was a little high, generally in the 100 teens and would recommend doubling your atenolol to 50 mg a day, you can either take 50 mg in the morning, or 25 mg each morning and evening. Forms: PCP List Discharge Date/Time: 05/30/23 19:07
[2023-05-30 18:18] LABS: BILIRUBIN,URINE NEGATIVE (NEGATIVE); GLUCOSE, URINE (UA) NEGATIVE (NEGATIVE); KETONES,URINE (UA) NEGATIVE (NEGATIVE); LEUKOCYTE ESTERASE, URINE SMALL (NEGATIVE); NITRITE,URINE NEGATIVE (NEGATIVE); OCCULT BLOOD,URINE LARGE (NEGATIVE); PH,URINE 6.5 PH (5.0-7.5); PROTEIN,URINE >=300 mg/dL (NEGATIVE); UROBILINOGEN,URINE 0.2 (NORMAL) E.U./dL (NORMAL)
[2023-05-30 18:21] LABS: BACTERIA,URINE Rare /HPF (None Seen); CLARITY,URINE TURBID (CLEAR); RBC,URINE TNTC /HPF (0-5); SQUAMOUS EPITHELIAL CELL,UR RARE Squamous (<= Few); WBC,URINE >25 /HPF (0-5)
[2023-05-30 18:26] LABS: BASOPHILS % (AUTO) 0.4 %; EOSINOPHILS # (AUTO) 0.1 10^3/uL (0.0-0.7); EOSINOPHILS % (AUTO) 1.6 %; HCT - HEMATOCRIT 37.7 % (37.0-47.0); HGB - HEMOGLOBIN 12.8 g/dL (12.0-16.0); LYMPHOCYTES % (AUTO) 20.6 %; MEAN CORPUSCULAR HEMOGLOBIN 31.9 pg (27.0-31.0); MEAN PLATELET VOLUME 10.7 fL (7.9-10.8); MONOCYTES # (AUTO) 0.8 10^3/uL (0.0-1.0); MONOCYTES % (AUTO) 15.4 %; NEUTROPHILS # (AUTO) 3.1 10^3/uL (1.5-6.6); NEUTROPHILS % (AUTO) 61.8 %; PLT - PLATELET COUNT 224 10^3/uL (130-450); RED BLOOD COUNT 4.01 10^6/uL (4.20-5.40); RED CELL DISTRIBUTION WIDTH 15.2 % (12.0-15.0)
[2023-05-30 18:33] LABS: INR 3.3 (0.8-1.2); PT - PROTHROMBIN TIME 33.7 secs (9.9-12.6)
[2023-05-30 18:48] LABS: CALCIUM 9.6 mg/dL (8.5-10.3); CREATININE 0.6 mg/dL (0.6-1.3); POTASSIUM 3.9 mmol/L (3.5-4.5)
[2023-05-30] MEDS ORDERED: NITROFURANTOIN MACRO 100 MG CAPSULE PO STA (18:55)
[2023-05-30 19:03] VITALS: BP 138/103
== END 2023-05-30 19:07 | disposition home or self-care (01) ==
LOC: ED 17:31
DX: N30.91 Cystitis, unspecified with hematuria (principal); I48.91 Unspecified atrial fibrillation; Z79.01 Long term (current) use of anticoagulants; D68.61 Antiphospholipid syndrome
CPT/HCPCS: 36415; 80048; 81001; 85025; 85610; 87086; 87181; 93005; 99283; 99284; A9270; 81003

== ENCOUNTER 2023-06-01 07:31 | Outpatient (CLI) | payer MEDICARE, OTHER | END 2023-06-01 07:32 | disposition home or self-care (01) | LOC: LAB.S 07:31 | PROVIDERS: ATTEND Internal Medicine | DX: D68.61 Antiphospholipid syndrome (principal); Z51.81 Encounter for therapeutic drug level monitoring; Z79.01 Long term (current) use of anticoagulants | CPT/HCPCS: 36416; 85610 ==

== ENCOUNTER 2023-06-15 08:08 | Outpatient (CLI) | payer MEDICARE, OTHER | END 2023-06-15 08:09 | disposition home or self-care (01) | LOC: LAB.S 08:08 | PROVIDERS: ATTEND Internal Medicine | DX: D68.61 Antiphospholipid syndrome (principal); Z51.81 Encounter for therapeutic drug level monitoring; Z79.01 Long term (current) use of anticoagulants | CPT/HCPCS: 36416; 85610 ==

== ENCOUNTER 2023-06-21 20:44 | Outpatient (CLI) | payer MEDICARE, OTHER | END 2023-06-21 20:45 | disposition EMS.NT | LOC: EMS 20:44 | DX: S61.215A Laceration without foreign body of left ring finger without damage to nail, initial encounter (principal); W25.XXXA Contact with sharp glass, initial encounter; Y92.019 Unspecified place in single-family (private) house as the place of occurrence of the external cause; Z79.01 Long term (current) use of anticoagulants ==

== ENCOUNTER 2023-06-22 01:10 | Outpatient (CLI) | payer MEDICARE, OTHER | END 2023-06-22 01:11 | disposition EMS.NT | LOC: EMS 01:10 | DX: S61.215A Laceration without foreign body of left ring finger without damage to nail, initial encounter (principal); W45.8XXA Other foreign body or object entering through skin, initial encounter; Z79.01 Long term (current) use of anticoagulants ==

== ENCOUNTER 2023-07-06 07:27 | Outpatient (CLI) | payer MEDICARE, OTHER | END 2023-07-06 07:28 | disposition home or self-care (01) | LOC: LAB.S 07:27 | PROVIDERS: ATTEND Internal Medicine | DX: D68.61 Antiphospholipid syndrome (principal); Z51.81 Encounter for therapeutic drug level monitoring; Z79.01 Long term (current) use of anticoagulants | CPT/HCPCS: 36416; 85610 ==

== ENCOUNTER 2023-07-27 18:01 | Outpatient (CLI) | payer MEDICARE, OTHER | END 2023-07-27 23:59 | disposition EMS.NT | LOC: EMS 18:01 | DX: M79.89 Other specified soft tissue disorders (principal) ==

== ENCOUNTER 2023-07-27 19:00 | Emergency (ER) | payer MEDICARE, OTHER ==
[2023-07-27 19:33] VITALS: O2SAT 100
[2023-07-27 20:22] LABS: BASOPHILS % (AUTO) 0.1 %; EOSINOPHILS % (AUTO) 0.1 %; HCT - HEMATOCRIT 34.1 % (37.0-47.0); HGB - HEMOGLOBIN 11.4 g/dL (12.0-16.0); LYMPHOCYTES # (AUTO) 0.6 10^3/uL (1.5-3.5); LYMPHOCYTES % (AUTO) 8.4 %; MEAN CORPUSCULAR HEMOGLOBIN 31.8 pg (27.0-31.0); MEAN CORPUSCULAR HGB CONC 33.4 g/dL (32.0-36.0); MEAN PLATELET VOLUME 10.7 fL (7.9-10.8); MONOCYTES # (AUTO) 1.6 10^3/uL (0.0-1.0); MONOCYTES % (AUTO) 20.9 %; NEUTROPHILS # (AUTO) 5.3 10^3/uL (1.5-6.6); NEUTROPHILS % (AUTO) 70.2 %; PLT - PLATELET COUNT 265 10^3/uL (130-450); RED BLOOD COUNT 3.59 10^6/uL (4.20-5.40); RED CELL DISTRIBUTION WIDTH 14.4 % (12.0-15.0); WHITE BLOOD COUNT 7.6 x10^3/uL (4.8-10.8)
[2023-07-27 20:24] LABS: SLIDE REVIEW? Indicated
--- NOTE | 2023-07-27 20:37 | ED Physician Documentation ---
PD HPI LOWER EXT INJURY - Stated complaint Stated Complaint: RT FOOT PX/SWELLING - Chief complaint Chief Complaint: Ext Problem - History obtained from History obtained from: Patient - Additional information Additional information: 79-year-old female with history of antiphospholipid syndrome on warfarin, atrial fibrillation presents by private vehicle from home for 2 days of right lower extremity pain and swelling. Patient states that last week she injured her left foot, and initially thought that she may have injured her right foot because of "favoring" the left foot, but it has become progressively more painful and swollen, and the pain reminds the patient of when she had a DVT in the past. Her last INR check was several weeks ago and it was 2.0. Of note, patient noted to be in atrial fibrillation with rapid ventricular response on arrival. Patient states that she was recently diagnosed with atrial fibrillation and is currently on 50 mg twice daily atenolol. She had a cardiology appointment just 3 days prior and mentioned the tachycardia to her die attacher, but the die attacher said that he was going to watch her heart rate and patterns on a Holter monitor and no additional medication changes were made at that time. Review of Systems Constitutional: denies: Fever, Chills Cardiac: denies: Chest pain / pressure, Palpitations, Calf pain Respiratory: denies: Dyspnea, Cough, Wheezing GI: denies: Abdominal Pain, Nausea, Vomiting, Constipation, Diarrhea : denies: Dysuria, Frequency, Hesitancy Musculoskeletal: reports: Extremity pain, Joint pain, Extremity swelling, Joint swelling. 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 Cardiovascular: Coronary stent - Present Medications Home Medications: Ambulatory Orders Medication Instructions Recorded Confirmed Cholecalciferol (Vitamin D3) 1 cap PO DAILY 09/04/13 07/27/23 [Vitamin D] Fexofenadine HCl [Deb] 180 mg PO DAILY 09/04/13 07/27/23 Levothyroxine Sodium [Levoxyl] 75 mcg PO DAILY 09/04/13 07/27/23 Nifedipine [Nifedical Xl] 30 mg PO BID 09/04/13 07/27/23 Subcutaneous Insulin Pump [Insulin 1 each SUBQ DAILY 09/04/13 07/27/23 Pump] Famotidine [Acid General Assistant] 40 mg PO BID 05/30/23 07/27/23 Hydroxychloroquine [Plaquenil] 200 mg PO DAILY 05/30/23 07/27/23 Atenolol [Tenormin] 50 mg PO DAILY 07/27/23 07/27/23 Calcium Carbonate [Calcium] 1 tab PO DAILY 07/27/23 07/27/23 Ferrous Sulfate 325 mg PO DAILY 07/27/23 07/27/23 Metoprolol Succinate [Toprol Xl] 50 mg PO BID #60 tablet 07/27/23 Warfarin [Coumadin] 7.5 mg PO 1400 07/27/23 07/27/23 - Allergies Allergies/Adverse Reactions: Allergies Allergy/AdvReac Type Severity Reaction Status Date / Time cefuroxime axetil * Allergy Intermediate Itching Verified 07/27/23 19:27 [From Ceftin] ciprofloxacin [From Cipro] Allergy Intermediate Rash Verified 07/27/23 19:27 ciprofloxacin HCl * Allergy Intermediate Rash Verified 07/27/23 19:27 [From Cipro] codeine Allergy Intermediate Rash Verified 07/27/23 19:27 hydrocodone Allergy Intermediate Itching Verified 07/27/23 19:27 salsalate [Salsalate] Allergy Intermediate Rash Verified 07/27/23 19:27 Penicillins Allergy Mild Rash Verified 07/27/23 19:27 sulindac [Sulindac] Allergy Mild Rash Verified 07/27/23 19:27 acetaphetamine AdvReac Unknown Uncoded 07/27/23 19:27 - Social History Does the pt smoke?: No Smoking Status: Never smoker Does the pt drink ETOH?: Yes Does the pt have substance abuse?: No - Immunizations Immunizations are current?: Yes - POLST Patient has POLST: No PD ED PE NORMAL - Vitals Vital signs reviewed: Yes - General General: Alert and oriented X 3, No acute distress, Well developed/nourished - Cardiac Cardiac: Strong equal pulses, Other (tachycardia) - Respiratory Respiratory: No respiratory distress, Clear bilaterally - Abdomen Abdomen: Soft, Non tender, Non distended - Derm Derm: Normal color, Warm and dry, No rash - Extremities Extremities: Normal ROM s pain, Other (swelling RLE, warm ankle, palpable DP pulses) - Neuro Neuro: Alert and oriented X 3, contestant coordinator 2-12 intact, No motor deficit, Normal speech Results - Vitals Vitals: Oxygen O2 Source Room air - Labs Labs: Laboratory Tests 07/27/23 07/27/23 07/27/23 20:13 20:13 20:13 WBC 7.6 RBC 3.59 L Hgb 11.4 L Hct 34.1 L MCV 95.0 MCH 31.8 H MCHC 33.4 RDW 14.4 Plt Count 265 MPV 10.7 Neut # (Auto) 5.3 Lymph # (Auto) 0.6 L [place] # (Auto) 1.6 H Eos # (Auto) 0.0 Baso # (Auto) 0.0 Absolute Nucleated RBC 0.00 Band Neuts % (Manual) Not Reportable Abnorm Lymph % (Manual) Not Reportable Nucleated RBC % 0.0 Neutrophils # (Manual) Not Reportable Lymphocytes # (Manual) Not Reportable Monocytes # (Manual) Not Reportable Eosinophils # (Manual) Not Reportable Basophils # (Manual) Not Reportable Differential Comment MANUAL=AUTO DIFF Manual Slide Review Indicated WBC Morphology NORMAL APPEARANCE Platelet Estimate NORMAL (130-450,000) Platelet Morphology NORMAL APPEARANCE RBC Morph Micro Appear NORMAL APPEARANCE PT 62.4 H INR 6.4 H* Sodium 130 L Potassium 4.3 Chloride 95 L Carbon Dioxide 27 Anion Gap 8.0 BUN 22 H Creatinine 0.5 L Estimated GFR (MDRD) 121 Glucose 234 H Calcium 9.2 Magnesium 1.6 L Total Bilirubin 1.1 H AST 30 ALT 24 Alkaline Phosphatase 181 H Total Protein 7.9 Albumin 4.1 Globulin 3.8 Albumin/Globulin Ratio 1.1 PD Medical Decision Making - ED course Complexity details: reviewed old records, reviewed results, re-evaluated patient, considered differential, d/w patient, d/w family ED course: Atraumatic RLE pain and swelling. Patient incidentally found to be in a fib with rvr. Currently on warfarin and atenolol with holter monitor in place. Patient states that her die attacher is aware of her elevated heart rate, however since heart rate is sustained over 120bpm I feel as though patient would benefit from additional rate control. Will check INR and labs. Patient states pain/swelling is similar to when previously diagnosed with dvt and she is on warfarin, however it has been several weeks since INR has been checked. XR negative for acute traumatic findings. DVT US negative for pathology. INR found to be quite supratherapeutic, however no evidence of bleeding or indication for emergent anticoagulation reversal. Patient advised on lab/imaging findings. Question if patient had minor trauma causing bleeding in setting of supratherapeutic INR. Patient placed in ron wrap bandage and instructed to keep limb elevated above heart level. Heart rate decreased to 100-110 bpm with metoprolol, patient reports feeling much better after metoprolol and stated "my hear no longer feels like it's fluttering", however she is still in a fib. Patient advised to change atenolol to metoprolol and to call her die attacher's office if her heart rate sustains greater than 120bpm despite taking her medications. Patient expressed understranding of plan and at bedside also voiced agreement. - Critical Care Time(min): 32 Comments: a fib with rvr requiring IV medications x 3 for control Time Includes: Direct patient care, Review records, Reassess patient, Document care, Coordinate care Data interpretation: Labs, Pulse ox, CXR, Prior EKG, Cardiac output Departure - Departure Disposition: 01 Home, Self Care Clinical Impression: Ankle swelling, Supratherapeutic INR, Atrial fibrillation Condition: Stable Instructions: ED Afib Prescriptions: Metoprolol Succinate [Toprol Xl] 50 mg PO BID #60 tablet Comments: I am changing your atrial fibrillation medicine to metoprolol 50 mg twice daily. Your goal heart rate is under 100 bpm. Please call your die attacher office if your heart rate is persistently over 120 bpm or if you have chest pains or shortness of breath. Your INR today was 6.5, please refrain from taking your warfarin until your INR goes back down to therapeutic level. Your x-ray and ultrasound today were normal. Wear the Ron wrap bandage as needed for comfort and elevate your ankle above heart level to help decrease the swelling. Forms: PCP List Discharge Date/Time: 07/27/23 22:58
[2023-07-27 20:39] LABS: ALBUMIN 4.1 g/dL (3.2-5.5); ALBUMIN/GLOBULIN RATIO 1.1 (1.0-2.2); BILIRUBIN,TOTAL 1.1 mg/dL (0.2-1.0); CALCIUM 9.2 mg/dL (8.5-10.3); CREATININE 0.5 mg/dL (0.6-1.3); MAGNESIUM 1.6 mg/dL (1.7-2.3); POTASSIUM 4.3 mmol/L (3.5-4.5); PT - PROTHROMBIN TIME 62.4 secs (9.9-12.6); TOTAL PROTEIN 7.9 g/dL (6.4-8.9)
[2023-07-27] MEDS ORDERED: METOPROLOL 5 MG/5 ML VIAL IVP STA ×3 (20:41→21:29)
[2023-07-27 20:43] LABS: INR 6.4 (0.8-1.2)
[2023-07-27 20:48] LABS: DIFFERENTIAL COMMENT MANUAL=AUTO DIFF; PLATELET ESTIMATE, MANUAL NORMAL (130-450,000) (NORMAL); PLATELET MORPHOLOGY NORMAL APPEARANCE (NORMAL); RBC MORPHOLOGY (MULTIPLE) NORMAL APPEARANCE (NORMAL); WBC MORPHOLOGY (MULTIPLE) NORMAL APPEARANCE (NORMAL)
[2023-07-27] MEDS ORDERED: oxyCODONE 5 MG TABLET PO STA (21:40)
--- NOTE | 2023-07-27 22:50 | XRAY Report ---
PROCEDURE: Ankle 3+V RT INDICATIONS: R ANKLE PAIN/SWELLING TECHNIQUE: 3 views of the ankle were acquired. COMPARISON: None. FINDINGS: Bones: No fractures or dislocations. Ankle mortise is normally aligned. No suspicious bony lesions . Plantar calcaneal enthesophyte. Soft tissues: No tibiotalar joint effusion. Achilles tendon appears normal. Vascular calcification s. IMPRESSION: No acute bony abnormality. If there remains a high clinical concern for fracture, consider cross-sect ional imaging now. If pain persists, consider repeat x-ray in 7-10 days or cross-sectional imaging. Reviewed by: Arianna Gambino MD on 07/27/2023 10:48 PM PST Approved by: Arianna Gambino MD on 07/27/2023 10:48 PM PST Station ID: [id number]
[2023-07-27 23:00] VITALS: BP 125/80
[2023-07-27] MEDS ORDERED: METOPROLOL SUCCINATE 50 MG TABLET PO ONE (23:00)
--- NOTE | 2023-07-27 23:04 | Ultrasound Report ---
PROCEDURE: Duplex Ext Veins Right INDICATIONS: RLE SWELLING, HX DVT/PE TECHNIQUE: Real-time imaging, as well as color and pulse Doppler interrogation, were performed of the lower extr emity deep veins from the inguinal ligament to the popliteal fossa. Attempted visualization of the ca lf veins was performed. COMPARISON: None. FINDINGS: The deep veins are normally compressible, and free of intraluminal thrombus. Color and pu lse Doppler demonstrate normal phasic intraluminal flow. There is normal augmentation response to di stal compression maneuver. Incidental small amount of fluid adjacent to the medial malleolus corresponding to area of pain. IMPRESSION: No deep venous thrombosis of the visualized lower extremity. Incidental small amount of free fluid in the soft tissues adjacent to the medial malleolus correspond ing to area of pain. Reviewed by: Arianna Gambino MD on 07/27/2023 11:03 PM PST Approved by: Airanna Gambino MD on 07/27/2023 11:03 PM PST Station ID: [id number]
== END 2023-07-27 22:58 | disposition home or self-care (01) ==
LOC: ED 19:00
DX: R22.41 Localized swelling, mass and lump, right lower limb (principal); I48.91 Unspecified atrial fibrillation; R79.1 Abnormal coagulation profile; Z79.01 Long term (current) use of anticoagulants
CPT/HCPCS: 36415; 73610; 80053; 83735; 85025; 85610; 93005; 93971; 96374; 96376; 99284; 99291; A9270

== ENCOUNTER 2023-07-29 08:08 | Outpatient (CLI) | payer MEDICARE, OTHER | END 2023-07-29 08:09 | disposition home or self-care (01) | LOC: LAB.S 08:08 | PROVIDERS: ATTEND Internal Medicine | DX: D68.61 Antiphospholipid syndrome (principal); Z51.81 Encounter for therapeutic drug level monitoring; Z79.01 Long term (current) use of anticoagulants | CPT/HCPCS: 36416; 85610 ==

== ENCOUNTER 2023-08-10 07:51 | Outpatient (CLI) | payer MEDICARE, OTHER | END 2023-08-10 07:52 | disposition home or self-care (01) | LOC: LAB.S 07:51 | PROVIDERS: ATTEND Internal Medicine | DX: D68.61 Antiphospholipid syndrome (principal); Z51.81 Encounter for therapeutic drug level monitoring; Z79.01 Long term (current) use of anticoagulants | CPT/HCPCS: 36416; 85610 ==

== ENCOUNTER 2023-08-24 08:47 | Outpatient (CLI) | payer MEDICARE, OTHER | END 2023-08-24 08:48 | disposition home or self-care (01) | LOC: LAB 08:47 | PROVIDERS: ATTEND Internal Medicine | DX: D68.61 Antiphospholipid syndrome (principal); Z51.81 Encounter for therapeutic drug level monitoring; Z79.01 Long term (current) use of anticoagulants | CPT/HCPCS: 36416; 85610 ==

== ENCOUNTER 2023-10-05 07:49 | Outpatient (CLI) | payer MEDICARE, OTHER | END 2023-10-05 07:50 | disposition home or self-care (01) | LOC: LAB.S 07:49 | PROVIDERS: ATTEND Internal Medicine | DX: D68.61 Antiphospholipid syndrome (principal); Z51.81 Encounter for therapeutic drug level monitoring; Z79.01 Long term (current) use of anticoagulants | CPT/HCPCS: 36416; 85610 ==

== ENCOUNTER 2023-10-17 04:40 | Emergency (ER) | payer MEDICARE, OTHER ==
[2023-10-17 05:01] VITALS: BP 151/94
[2023-10-17 05:38] VITALS: O2SAT 100
[2023-10-17 05:50] LABS: INR 2.5 (0.8-1.2); PT - PROTHROMBIN TIME 26.3 secs (9.9-12.6)
--- NOTE | 2023-10-17 06:07 | ED Physician Documentation ---
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 She had colonoscopy done last week and was discontinued on her Coumadin and started on Lovenox she has restarted her Coumadin and she is on Coumadin and Lovenox now and she is following a schedule laid out by her doctor. She has developed some bleeding when she attempted to place her glucose monitor and she has not been able to stop the bleeding despite the small size of the pinprick. 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 Cardiovascular: Coronary stent - Present Medications Home Medications: Ambulatory Orders Medication Instructions Recorded Confirmed Cholecalciferol (Vitamin D3) 1 cap PO DAILY 09/04/13 07/27/23 [Vitamin D] Fexofenadine HCl [Deb] 180 mg PO DAILY 09/04/13 07/27/23 Levothyroxine Sodium [Levoxyl] 75 mcg PO DAILY 09/04/13 07/27/23 Nifedipine [Nifedical Xl] 30 mg PO BID 09/04/13 07/27/23 Subcutaneous Insulin Pump [Insulin 1 each SUBQ DAILY 09/04/13 07/27/23 Pump] Famotidine [Acid Net Mobile Developer] 40 mg PO BID 05/30/23 07/27/23 Hydroxychloroquine [Plaquenil] 200 mg PO DAILY 05/30/23 07/27/23 Atenolol [Tenormin] 50 mg PO DAILY 07/27/23 07/27/23 Calcium Carbonate [Calcium] 1 tab PO DAILY 07/27/23 07/27/23 Ferrous Sulfate 325 mg PO DAILY 07/27/23 07/27/23 Metoprolol Succinate [Toprol Xl] 50 mg PO BID #60 tablet 07/27/23 Warfarin [Coumadin] 7.5 mg PO 1400 07/27/23 07/27/23 - Allergies Allergies/Adverse Reactions: Allergies Allergy/AdvReac Type Severity Reaction Status Date / Time cefuroxime axetil * Allergy Intermediate Itching Verified 10/17/23 04:54 [From Ceftin] ciprofloxacin [From Cipro] Allergy Intermediate Rash Verified 10/17/23 04:54 ciprofloxacin HCl * Allergy Intermediate Rash Verified 10/17/23 04:54 [From Cipro] codeine Allergy Intermediate Rash Verified 10/17/23 04:54 hydrocodone Allergy Intermediate Itching Verified 10/17/23 04:54 salsalate [Salsalate] Allergy Intermediate Rash Verified 10/17/23 04:54 Penicillins Allergy Mild Rash Verified 10/17/23 04:54 sulindac [Sulindac] Allergy Mild Rash Verified 10/17/23 04:54 acetaphetamine AdvReac Unknown Uncoded 10/17/23 04:54 - Social History Does the pt smoke?: No Smoking Status: Never smoker Does the pt drink ETOH?: Yes Does the pt have substance abuse?: No - Immunizations Immunizations are current?: Yes - POLST Patient has POLST: No PD ED PE NORMAL - Vitals Vital signs reviewed: Yes (hypertensive ) - General General: Alert and oriented X 3, No acute distress, Well developed/nourished - HEENT HEENT: Atraumatic, PERRL, EOMI - Respiratory Respiratory: No respiratory distress - Derm Derm: Normal color, Warm and dry, No rash - Extremities Extremities: No deformity, No edema, Other (on the medial thigh there are 3 areas of recent attempts to place the glucose monitor. One of these is continuing to ooze blood. 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 2-12 intact, No motor deficit, No sensory deficit, Normal speech Eye Opening: Spontaneous Motor: Obeys Commands Verbal: Oriented GCS Score: 15 - Psych Psych: Normal mood, Normal affect Results - Vitals Vitals: Vital Signs - 24 hr 10/17/23 10/17/23 04:46 04:53 Temperature 35.6 C L 35.6 C L Heart Rate 83 83 Respiratory 20 20 Rate Blood Pressure 151/94 H 151/94 H O2 Saturation 118 H 100 Oxygen O2 Source Room air - Labs Labs: Laboratory Tests 10/17/23 05:28 PT 26.3 H INR 2.5 H PD Medical Decision Making - ED course Complexity details: considered differential, d/w patient, d/w family ED course: 73-year-old female presents to the emergency department with bleeding to the medial thigh that will not stop and she is not on anticoagulation. I evaluated the patient and found that she was applying pressure to to the wrong spot I removed the bandages she had, and placed a point bandage over the small rent in the skin. I had the patient apply direct pressure to that bandage and this res olved the bleeding. We checked her INR and found it was 2.5 and I have advised the patient to discontinue the lovenox and continue the coumadin on her prior schedule of 7.5 mg daily. Departure - Departure Disposition: 01 Home, Self Care Clinical Impression: Encounter for monitoring Coumadin therapy Condition: Stable Instructions: Prothrombin Time Follow-Up: Clemente Matt MD [Primary Care Provider] - Comments: Sonia, today it looks like you have reached a therapeutic INR with your Coumadin. You can now stop the Lovenox. If you develop more areas of bleeding apply direct pressure directly to the area of bleeding.
== END 2023-10-17 06:24 | disposition home or self-care (01) ==
LOC: ED 04:40
DX: R58 Hemorrhage, not elsewhere classified (principal); W26.8XXA Contact with other sharp object(s), not elsewhere classified, initial encounter; Y93.89 Activity, other specified; D68.61 Antiphospholipid syndrome; Z79.01 Long term (current) use of anticoagulants; Z51.81 Encounter for therapeutic drug level monitoring
CPT/HCPCS: 36415; 85610; 99283; 99284

== ENCOUNTER 2023-10-19 08:14 | Outpatient (CLI) | payer MEDICARE, OTHER | END 2023-10-19 08:15 | disposition home or self-care (01) | LOC: LAB.S 08:14 | PROVIDERS: ATTEND Internal Medicine | DX: D68.61 Antiphospholipid syndrome (principal); Z51.81 Encounter for therapeutic drug level monitoring; Z79.01 Long term (current) use of anticoagulants | CPT/HCPCS: 36416; 85610 ==

== ENCOUNTER 2023-10-26 08:10 | Outpatient (CLI) | payer MEDICARE, OTHER | END 2023-10-26 08:11 | disposition home or self-care (01) | LOC: LAB.S 08:10 | PROVIDERS: ATTEND Internal Medicine | DX: Z51.81 Encounter for therapeutic drug level monitoring (principal); D68.61 Antiphospholipid syndrome; Z79.01 Long term (current) use of anticoagulants | CPT/HCPCS: 36416; 85610 ==

== ENCOUNTER 2023-11-16 07:42 | Outpatient (CLI) | payer MEDICARE, OTHER | END 2023-11-16 07:43 | disposition home or self-care (01) | LOC: LAB.S 07:42 | PROVIDERS: ATTEND Internal Medicine | DX: D68.61 Antiphospholipid syndrome (principal); Z51.81 Encounter for therapeutic drug level monitoring; Z79.01 Long term (current) use of anticoagulants | CPT/HCPCS: 36416; 85610 ==

== ENCOUNTER 2023-11-23 08:41 | Outpatient (CLI) | payer MEDICARE, OTHER | END 2023-11-23 08:42 | disposition home or self-care (01) | LOC: LAB.S 08:41 | PROVIDERS: ATTEND Internal Medicine | DX: D68.61 Antiphospholipid syndrome (principal); Z51.81 Encounter for therapeutic drug level monitoring; Z79.01 Long term (current) use of anticoagulants | CPT/HCPCS: 36416; 85610 ==

== ENCOUNTER 2023-11-30 08:21 | Outpatient (CLI) | payer MEDICARE, OTHER | END 2023-11-30 08:22 | disposition home or self-care (01) | LOC: LAB.S 08:21 | PROVIDERS: ATTEND Internal Medicine | DX: Z51.81 Encounter for therapeutic drug level monitoring (principal); D68.61 Antiphospholipid syndrome; Z79.01 Long term (current) use of anticoagulants | CPT/HCPCS: 36416; 85610 ==

== ENCOUNTER 2023-12-07 08:18 | Outpatient (CLI) | payer MEDICARE, OTHER | END 2023-12-07 08:19 | disposition home or self-care (01) | LOC: LAB.S 08:18 | PROVIDERS: ATTEND Internal Medicine | DX: D68.61 Antiphospholipid syndrome (principal); Z51.81 Encounter for therapeutic drug level monitoring; Z79.01 Long term (current) use of anticoagulants | CPT/HCPCS: 36416; 85610 ==

== ENCOUNTER 2024-01-22 07:28 | Outpatient (CLI) | payer MEDICARE, OTHER ==
[2024-01-22 15:07] LABS: INR 2.9 (0.8-1.2); PT - PROTHROMBIN TIME 29.6 secs (9.9-12.6)
== END 2024-01-22 07:29 | disposition home or self-care (01) ==
LOC: LAB.S 07:28
PROVIDERS: ATTEND Internal Medicine
DX: D68.61 Antiphospholipid syndrome (principal); Z51.81 Encounter for therapeutic drug level monitoring; Z79.01 Long term (current) use of anticoagulants
CPT/HCPCS: 36415; 36416; 85610